=== PATIENT | male | born 1980 | race African-American/Black ===

== ENCOUNTER 2018-10-30 18:34 | Emergency (ER) | payer SELFPAY ==
[~2018-10-30] VITALS: Ht 162.6 cm; Wt 163.6 kg
[2018-10-30 19:39] LABS: BASOPHILS % (AUTO) 0.7 % (0.0-2.0); EOSINOPHILS % (AUTO) 1.7 % (1.0-6.0); HEMATOCRIT 37.6 % (41-53); HEMOGLOBIN 12.1 g/dL (13.5-17.5); LYMPHOCYTES # (AUTO) 2.1 K/uL (1.0-4.8); LYMPHOCYTES % (AUTO) 27.8 % (22.0-44.0); MEAN CORPUSCULAR HEMOGLOBIN 26.9 pg (26.0-34.0); MEAN CORPUSCULAR HGB CONC 32.3 G/dL (31.0-37.0); MEAN CORPUSCULAR VOLUME 83 fL (80-100); MONOCYTES # (AUTO) 0.5 K/uL (0.1-1.0); MONOCYTES % (AUTO) 7.1 % (2.0-9.0); NEUTROPHILS # (AUTO) 4.8 K/uL (1.8-7.7); NEUTROPHILS % (AUTO) 62.7 % (40.0-70.0); PLATELET COUNT (AUTO) 253 K/uL (150-450); RED BLOOD CELL COUNT(AUTO) 4.52 MIL/uL (4.50-5.90); RED CELL DISTRIBUTION WIDTH 13.4 % (11.5-14.5)
[2018-10-30 19:48] LABS: ANION GAP 5 mmol/L (8-16); CARBON DIOXIDE 31 mmol/L (22-29); CHLORIDE 105 mmol/L (98-107); CREATININE 0.84 mg/dL (0.60-1.30); GLOMERULAR FILTR. RATE CALC > 60 mL/min (>60); GLUCOSE,RANDOM 114 mg/dL (70-110); POTASSIUM 3.3 mmol/L (3.5-5.1); SODIUM SERUM 141 mmol/L (136-145); UREA NITROGEN, BLOOD 14 mg/dL (7-18)
[2018-10-30 19:54] LABS: ALANINE AMINOTRANSFERASE 28 U/L (12-78); ALBUMIN 3.5 g/dL (3.4-5.0); ALKALINE PHOSPHATASE 87 U/L (46-116); ASPARTATE AMINOTRANSFERASE 24 U/L (15-37); BILIRUBIN,TOTAL 0.4 mg/dL (0.1-1.0); TOTAL PROTEIN, SERUM 7.3 g/dL (6.4-8.2)
[2018-10-30] MEDS ORDERED: TraMADol HCL 50 MG TABLET PO ONE (23:30)
[2018-10-30] MEDS ORDERED: POTASSIUM CHLORIDE 10% 40 MEQ/30 ML LIQUID UDCUP PO ONE (23:30)
[2018-10-30 23:46] VITALS: BP 145/79
== END 2018-10-30 23:49 | disposition home or self-care (01) ==
LOC: EMS 18:35
DX: R60.0 Localized edema (principal); M79.622 Pain in left upper arm
CPT/HCPCS: 85379; 93005

== ENCOUNTER → 2022-11-17 | Day surgery (SDC) | payer OTHER ==
[2022-11-15 11:54] LABS: COVID AG,FIA SOURCE NASAL SWAB
[~2022-11-17] VITALS: Ht 162.6 cm; Wt 147.7 kg
[~2022-11-17] MED LIST: DOCU-385 PO; FERR325T27 PO; GABA-1201 PO; HYDR10CA5; LOSA-382 PO; METO50 PO; SEMA2.4P SQ; SODIUM CHLORIDE 0.9% 1,000 ML IV ONE
== END | disposition still patient (30) ==
LOC: SURGERY 00:01
PROVIDERS: ATTEND Internal Medicine Gastroenterology
DX: D64.9 Anemia, unspecified (principal); Z53.8 Procedure and treatment not carried out for other reasons
CPT/HCPCS: 87426; C9803

== ENCOUNTER 2024-10-04 23:26 | Emergency (ER) | payer MEDICARE, OTHER ==
[~2024-10-04] VITALS: Ht 162.6 cm; Wt 147.7 kg
[~2024-10-04 23:26] MED LIST changes: -SODIUM CHLORIDE 0.9% 1,000 ML IV ONE
[2024-10-04 23:46] VITALS: TEMP 99.2
[2024-10-05] MEDS ORDERED: MOXI3DRO25 OU (02:08)
[2024-10-05 02:14] VITALS: BP 146/92; PULSE 74; RESP 16; O2SAT 98
== END 2024-10-05 02:15 | disposition home or self-care (01) ==
LOC: EMS 23:26
DX: H10.89 Other conjunctivitis (principal); I10 Essential (primary) hypertension; Z88.8 Allergy status to other drugs, medicaments and biological substances; Z79.899 Other long term (current) drug therapy
CPT/HCPCS: 99283; Z7502